=== PATIENT | female | born 1985 | race Caucasian/White ===

== ENCOUNTER 2019-10-08 15:47 | Emergency (ER) | payer OTHER ==
[~2019-10-08] VITALS: Ht 167.6 cm; Wt 62.0 kg
[2019-10-08] MEDS ORDERED: SODIUM CHLORIDE 0.9% 1,000ML IVBOLUS ONE ×2 (16:00→17:30)
[2019-10-08 16:08] LABS: O2 FLOW ROOM AIR L/min; PH, VENOUS 7.305 pH (7.320-7.420)
[2019-10-08 16:09] LABS: BASOPHILS # (AUTO) 0.03 x10^3/uL (0-0.1); BASOPHILS % (AUTO) 0 % (0-1); EOSINOPHILS # (AUTO) 0.09 x10^3/uL (0-0.4); EOSINOPHILS % (AUTO) 1 % (1-7); LYMPHOCYTES # (AUTO) 2.39 x10^3/uL (1-3.4); LYMPHOCYTES % (AUTO) 22 % (22-44); MD NO; MEAN CORPUSCULAR HGB CONC 33.4 g/dL (32.4-35.8); MEAN CORPUSCULAR VOLUME 92.9 fL (80-100); MEAN PLATELET VOLUME 9.5 fL (7.4-10.4); MONOCYTES # (AUTO) 0.26 x10^3/uL (0.2-0.8); MONOCYTES % (AUTO) 2 % (2-9); NEUTROPHILS # (AUTO) 8.33 x10^3/uL (1.8-6.8); NEUTROPHILS % (AUTO) 75 % (42-75); PLATELET COUNT 206 x10^3/uL (130-400); RED CELL DISTRIBUTION WIDTH 12.7 % (9.6-15.2)
[2019-10-08 16:21] LABS: ALBUMIN 3.7 g/dL (3.4-5.0); ANION GAP 11 mmol/L (5-15); CALCIUM 8.8 mg/dL (8.5-10.1); CHLORIDE 99 mmol/L (98-107); CREATININE 0.76 mg/dL (0.55-1.02)
[2019-10-08] MEDS ORDERED: INSULIN REGULAR 100 UNITS/ML, 3ML VIAL SQ-INSULIN ONE (16:30)
--- NOTE | 2019-10-08 16:30 | NUR ---
PT LAYING ON SIDE IN BED, RESPIRATIONS EVEN AND UNLABORED ON RA. NAD NOTED AT THIS TIME. IVF INFUSING PER EMAR. OFFICER AT BEDSIDE. SIDE RAIL UP, CALL LIGHT AVAILABLE.
[2019-10-08 16:56] LABS: ACETONE, SERUM Moderate(40mg/dL) mg/dL (Negative)
[2019-10-08] MEDS ORDERED: INSULIN SINGLE DOSE, ER ONE (17:04)
--- NOTE | 2019-10-08 17:15 | NUR ---
PT MEDICATED PER EMAR, DISCUSSION WITH ERMD REGARDING PT'S INSULIN DOSE. PLAN AT THIS TIME IS TO RECHECK BG 30 MIN AFTER INSULIN AND THEN 60 MIN AFTER INSULIN. PT AND OFFICER AWARE OF PLAN. PT IRRITATED, "I'M JUST READY TO GO" (TO [facility]). NAD NOTED AT THIS TIME. PT REFUSES TO KEEP MONITORING ON HER. SIDE RAILS UP.
[2019-10-08 18:00] VITALS: BP 115/70
--- NOTE | 2019-10-08 18:24 | NUR ---
PT REFUSING FURTHER MEDICAL CARE AND SECOND BG CHECK. ERMD AWARE OF SECOND IV FLUID COMPLETED, AND RECHECK FOR BG. PLAN FOR DC.
== END 2019-10-08 18:46 | disposition home or self-care (01) ==
LOC: ED 17:39
DX: E11.65 Type 2 diabetes mellitus with hyperglycemia (principal); E86.0 Dehydration; F15.10 Other stimulant abuse, uncomplicated; F17.200 Nicotine dependence, unspecified, uncomplicated
CPT/HCPCS: 36415; 80048; 82010; 82040; 82803; 82962; 83930; 85025; 96360; 96372; 99283; J1815; J7030; 96361